=== PATIENT | female | born 1990 | race Two or more races ===

== ENCOUNTER 2024-12-16 18:19 | Emergency (ER) | payer MEDICAID, SELFPAY ==
[2024-12-16 18:19] VITALS: BMI 28.3
[2024-12-16 18:28] VITALS: BP 134/84; PULSE 74; RESP 18; TEMP 36.9; O2SAT 96
--- NOTE | 2024-12-16 18:36 | PD.EDDENTL ---
ED Dental RME/HPI General Chief complaint: Dental/Oral/Throat Stated complaint: LEFT SIDE DENTAL PAIN SINCE YEST Time Seen by Provider: 12/16/24 18:29 Arrival date/time: 12/16/24 18:19 34 year old female present to emergency room with c/o of left side pain for 1 day, history of dental issues in the past. pt report unable to make it into dentist. Take tylenol with minimal improvement LOCATION: dental SEVERITY: Symptoms are described as being severe with limitations on activities of daily living CONTEXT: The patient is unable to identify any inciting events. DURATION/TIMING: The symptoms started approximately one day ago and have been constant since and have been progressive getting worse. ASSOCIATED SYMPTOMS: The patient is unable to identify any other associated symptoms. MODIFYING FACTORS: The patient is unable to identify any alleviating or aggravating symptoms. PERTINENT ROS: no fevers, no cough, no pleuritic pain, no ripping or tearing sensations, denies any lower extremity edema and no unilateral swelling, no chest pain/shortness of breath no nausea,vomiting, diarrhea, no dizziness/headache no rash no loc/syncope episode no abd/back pain no dsyuria,urgency,frequency REVIEW OF SYSTEMS: See History of Present Illness - with the exception of those mentioned in the history of present illness, all other systems reviewed and reported as negative GENERAL: In general the patient is awake, interactive, in an emergency department gurney. HEAD/EYES/EARS/NOSE/THROAT: normo-cephalic, atraumatic, mucus membranes are moist, anicteric, palpebral conjunctiva is pink, trachea is midline. NEUROLOGICAL: cranio-facial features are symmetric, moves all four extremities equally without obvious limitations or weakness. EXTREMITY: no tenderness to palpation over the long bones or large joints of the bilateral upper and lower extremities, no joint swelling, no joint erythema, no signs of trauma, no unilateral leg swelling and no peripheral edema. SKIN: warm, dry, well-perfused, no jaundice, no rash, no telangiectasias or petechia. PSYCH: calm, cooperative, no evidence of psychosis or agitation Related Data Previous Rx's ?Medication ?Instructions ?Recorded naproxen 500 mg tablet (Naprosyn) 500 mg PO BID PRN pain #30 tabs 08/07/21 naproxen 500 mg tablet 500 mg PO BID #30 tabs 12/16/23 amoxicillin 875 mg-potassium 1 tab PO Q12H #14 tabs 12/16/24 clavulanate 125 mg tablet naproxen 500 mg tablet 500 mg PO BID PRN pain #30 tabs 12/16/24 Allergies Allergy/AdvReac Type Severity Reaction Status Date / Time CODIENE Allergy Severe Hives Uncoded 12/16/24 18:22 Course Course Course Narrative: Presentation consistent with dental pain of tooth left side lower? No evidence of Navneet's Angina, large abscess pocket, requirement for emergent extraction, or other complications. Provided prescription for augmentin/naproxen . Patient informed to follow up with local dentist. Return to ER if pain uncontrolled, abscess that drains purulent fluid, high fevers, trouble swallowing, or other concerns.? first dose of antibiotic and toradol 30mg IM given prior to discharge? Plan:? Discharge from ED? Rx: augmentin 875mg bid for 7 days, , Naproxen 500mg bid as need? F/U with local dentist Informed to return to ED if has new or worsening symptoms. Expressed understanding of and agreement with plan and all questions answered. Quality Measures none Orders Category Date Time Status Amoxicillin/Pot Clav 875 [Augmentin 875] Med 12/16/24 18:32 Discontinued 1 tab PO X1 ONE Ketorolac Inj [Toradol Inj] Med 12/16/24 18:32 Discontinued 30 mg IM X1 ONE Vital Signs Vital signs: Vital Signs Temperature 98.4 F 12/16/24 18:28 Pulse Rate 74 12/16/24 18:28 Respiratory Rate 18 12/16/24 18:28 Blood Pressure 134/84 H 12/16/24 18:28 Pulse Oximetry (%) 96 12/16/24 18:28 Oxygen Delivery Method Room Air 12/16/24 18:28 Dental / Oral Patient data External records reviewed:: [facility] previous records Clinical information provided by:: patient Social determinants that could affect healthcare access:: none Patient has the following chronic illnesses:: dental pain/infection How is presenting disease/condition affected by chronic disease/condition?: exacerbated by Evaluation data The following diagnostics were reviewed and interpreted by me:: other (specify) (n/a ) Lab and/or radiology exams considered but not ordered:: n/a Interpretation Summary: n/a Medications / Prescriptions Medications or Prescriptions considered but not ordered:: n/a Medication administrations:: Medication Administration History Discontinued Medications Amoxicillin/Clavulanate Potassium (Amoxicillin/Pot Clav 875 Tablet) 1 tab PO X1 ONE Stop: 12/16/24 18:33 Ketorolac Tromethamine (Ketorolac Inj 60 Mg/2 Ml Vial) 30 mg IM X1 ONE Stop: 12/16/24 18:33 as stated Consultations Consultation(s) initiated? (list below): No Diagnosis Most likely diagnosis given after review of the tests above:: dental pain Admission Indicated Admission indicated?: not indicated Admission Request Was there a request for admission?: No Disposition Plan Disposition Plan: Discharge Discharge Attestation Discharge Attestation: The patient and all family members were given an opportunity to ask questions and understood the discharge instructions. Discharge instructions specifically effects, indications for sooner follow up or return to the emergency department, and the expected course of current diagnosis. Patient condition: Stable Discharge Plan Plan Patient Disposition: HOME (Self Care) Health Concerns: Follow up with dentist as directed Return to ED if symptoms worsen Prescriptions/Referrals Prescriptions/Med Rec: New amoxicillin-pot clavulanate 875-125 mg tablet 1 tab PO Q12H Qty: 14 0RF naproxen 500 mg tablet 500 mg PO BID PRN (Reason: pain) Qty: 30 0RF No Action naproxen [Naprosyn] 500 mg tablet 500 mg PO BID PRN (Reason: pain) Qty: 30 0RF naproxen 500 mg tablet 500 mg PO BID Qty: 30 0RF Problem List Clinical Impression: Pain, dental Patient/Caregiver Discharge Instructions Education Materials: ED Dental Pain Print Language: [place] Leonean Stand Alone Forms: Luanne Award Info., Patient Portal Info Letter
[2024-12-16] MEDS: KETOROLAC INJ 60 MG/2 ML VIAL 30 MG IM (19:02)
[2024-12-16] MEDS: AMOXICILLIN/POT CLAV 875 TABLET 1 TAB PO (19:02)
== END 2024-12-16 19:12 | disposition home or self-care (01) ==
LOC: SERX 18:41
PROVIDERS: Emergency Provider Emergency Medicine
DX: K08.89 Other specified disorders of teeth and supporting structures (principal)
CPT/HCPCS: 96372; 99283; J1885; A9270

== ENCOUNTER 2025-01-29 19:29 | Emergency (ER) | payer MEDICAID, SELFPAY ==
[2025-01-29 19:31] VITALS: BMI 27.9
[2025-01-29 19:35] VITALS: BP 118/80; PULSE 73; RESP 18; TEMP 36.6; O2SAT 100
--- NOTE | 2025-01-29 19:47 | EDNOTE_ITS ---
ED Allergic Reaction RME/HPI General Chief complaint: Skin/Abscess/Foreign Body Stated complaint: RASH Time Seen by Provider: 01/29/25 19:43 Arrival date/time: 01/29/25 19:29 35F with history of anxiety/drug use presents to ED with 2 days of generalized itchy rash. Patient denies SOB, throat swelling, as well as new foods, meds, and hygiene products. Limitations: no limitations Related Data Previous Rx's ?Medication ?Instructions ?Recorded naproxen 500 mg tablet (Naprosyn) 500 mg PO BID PRN pa in #30 tabs 08/07/21 naproxen 500 mg tablet 500 mg PO BID #30 tabs 12/15 amoxicillin 875 mg-potassium 1 tab PO Q12H #14 tabs clavulanate 125 mg tablet naproxen 500 mg tablet 500 mg PO BID PRN pain #30 t abs 12/16/24 Allergies Allergy/AdvReac Type Severity Reaction Status Date / Time CODIENE Allergy Severe Hives Uncoded 01/29/25 19:30 Review of Systems Review of Systems Systems Reviewed: All systems reviewed, normal except as documented Constitutional Constitutional: Reports system reviewed and no additional complaints, except as documented, Denies fever(s) and Denies headache(s) ENT Ears, Nose, Mouth, and Throat: Denies disequilibrium and Denies headache(s) Cardiovascular Cardiovascular: Reports system reviewed and no additional complaints, except as documented, Denies chest pain and Denies dyspnea Respiratory Respiratory: Reports system reviewed and no additional complaints, except as documented, Denies cough and Denies dyspnea Gastrointestinal Gastrointestinal: Reports system reviewed and no additional complaints, except as documented, Denies abdominal pain, Denies nausea and Denies vomiting Integumentary/Breasts Skin/Breast: Reports as per HPI, Reports pruritus and Reports rash Neurologic Neurologic: Reports system reviewed and no additional complaints, except as documented, Denies confusion, Denies disequilibrium and Denies headache(s) Psychiatric Psychiatric: Denies confusion Past Medical History Past Medical History NEUROLOGIC: Negative Neurological Disorders CARDIAC: Negative Cardiac Disorders or Congestive Heart Failure RESPIRATORY: Negative Chronic Obstructive Pulmonary Disease (COPD) or Asthma GASTROINTESTINAL: Positive Gastrointestinal Disorders and Gall Bladder Disease GENITOURINARY: Negative Genitourinary Disorders or Renal Disease MUSCULOSKELETAL: Negative Musculoskeletal Disorders ENDOCRINE: Negative Endocrine Disorders, Diabetes Mellitus Type 1 or Diabetes Mellitus Type 2 HEMATOLOGIC: Negative Sickle Cell Disease Surgical History SURGICAL: Negative Section Social History SMOKING STATUS: Never smoker ED Exam General Limitations: Present no limitations General appearance: Present alert and in no apparent distress Head Head exam: Present atraumatic Eye Eye exam: Present normal appearance, PERRL and EOMI ENT ENT exam: Present normal exam, normal oropharynx and mucous membranes moist Neck Neck exam: Present normal inspection, full ROM and trachea midline Chest Chest inspection: Present normal inspection and symmetric chest wall rise Respiratory Respiratory exam: Present normal lung sounds bilaterally Cardiovascular Cardiovascular exam: Present regular rate, normal rhythm and normal heart sounds Abdominal Exam Abdominal exam: Present soft and normal bowel sounds Extremities Exam Extremities exam: Present normal inspection and full ROM Back Exam Back exam: Present normal inspection and full ROM Neurological Exam Neurological exam: Present alert, oriented X3 and CN II-XII intact Psychiatric Psychiatric exam: Present normal affect and normal mood Skin Skin exam: Present warm, dry, intact, normal color and rash Course Quality Measures none Orders Category Date Time Status DiphenhydrAMINE [Benadryl] Med 01/29/25 19:44 Discontinued 25 mg PO X1 ONE Famotidine [Pepcid] Med 01/29/25 19:44 Discontinued 20 mg PO X1 ONE dexAMETHasone TAB [Decadron Tab] Med 01/29/25 20:00 Discontinued 10 mg PO X1 ONE Vital Signs Vital signs: Vital Signs Temperature 97.9 F 01/29/25 19:35 Pulse Rate 73 01/29/25 19:35 Respiratory Rate 18 01/29/25 19:35 Blood Pressure 118/80 01/29/25 19:35 Pulse Oximetry (%) 100 01/29/25 19:35 Oxygen Delivery Method Room Air 01/29/25 19:35 O2 at 100% on RA and WNLs Allergic Reaction MDM Narrative MDM Narrative:: 35F with history of anxiety/drug use presents to ED with 2 days of generalized itchy rash. Patient denies SOB, throat swelling, as well as new foods, meds, and hygiene products. Physical exam reveals generalized urticarial rash. Normal WOB. Speech normal. Patient is afebrile, calm, and alert. Patient eloped prior to DC. Patient data External records reviewed:: [facility] previous records Clinical information provided by:: patient Social determinants that could affect healthcare access:: mental health Patient has the following chronic illnesses:: psych/anxiety How is presenting disease/condition affected by chronic disease/condition?: uneffected by Evaluation data The following diagnostics were reviewed and interpreted by me:: other (specify) (none) Lab and/or radiology exams considered but not ordered:: not ordered Interpretation Summary: n/a Medications / Prescriptions Medications or Prescriptions considered but not ordered:: ordered Medication administrations:: Medication Administration History Discontinued Medications Dexamethasone (Dexamethasone 4 Mg Tablet) 10 mg PO X1 ONE Stop: 01/29/25 20:01 Last Admin: 01/29/25 19:55 Dose: 10 mg Documented By: JOSIE Diphenhydramine HCl (Diphenhydramine 25 Mg Capsule) 25 mg PO X1 ONE Stop: 01/29/25 19:45 Last Admin: 01/29/25 19:55 Dose: 25 mg Documented By: AC Famotidine (Famotidine 20 Mg Tablet) 20 mg PO X1 ONE Stop: 01/29/25 19:45 Last Admin: 01/29/25 19:55 Dose: 20 mg Documented By: JOSIE above Consultations Consultation(s) initiated? (list below): No Diagnosis Differential Diagnosis allergic reaction: anaphylaxis, allergic reaction, angioedema, contact dermatitis, adverse reaction to drug, viral enanthem and urticaria Most likely diagnosis given after review of the tests above:: urticaria Admission Indicated Admission indicated?: not indicated Admission Request Was there a request for admission?: No Disposition Plan Disposition Plan: other (specify) (eloped) Discharge Plan Plan Patient Disposition: Elopement Prescriptions/Referrals Prescriptions/Med Rec: No Action naproxen [Naprosyn] 500 mg tablet 500 mg PO BID PRN (Reason: pain) Qty: 30 0RF naproxen 500 mg tablet 500 mg PO BID Qty: 30 0RF amoxicillin-pot clavulanate 875-125 mg tablet 1 tab PO Q12H Qty: 14 0RF naproxen 500 mg tablet 500 mg PO BID PRN (Reason: pain) Qty: 30 0RF Referrals: Nayan Bhagat MD [Primary Care Provider] - In 1 week Problem List Clinical Impression: Urticaria Patient/Caregiver Discharge Instructions Print Language: Yoruba PA/ELECTRIFICATION ADVISER Supervising Physician PA/ELECTRIFICATION ADVISER Supervising Physician: Dr. Del Castillo
[2025-01-29] MEDS: dexAMETHasone 4 MG TABLET 10 MG PO (19:55)
[2025-01-29] MEDS: FAMOTIDINE 20 MG TABLET PO (19:55)
[2025-01-29] MEDS: DiphenhydrAMINE 25 MG CAPSULE PO (19:55)
--- NOTE | 2025-01-29 21:40 | PC.NURSE ---
NO ANSWER FOR REVIEW
--- NOTE | 2025-01-29 21:45 | PC.NURSE ---
NO ANSWER FOR REVIEW
--- NOTE | 2025-01-29 22:00 | PC.NURSE ---
NO ANSWER FOR REVIEW
== END 2025-01-29 22:01 | disposition left against medical advice (07) ==
PROVIDERS: Emergency Provider Emergency Medicine; PCP Family Medicine
DX: L50.9 Urticaria, unspecified (principal)
CPT/HCPCS: 99281; J8540; A9270

== ENCOUNTER 2025-06-29 23:45 | Emergency (ER) | payer MEDICAID, SELFPAY ==
[2025-06-29 23:45] VITALS: BMI 23.3
[2025-06-29 23:59] VITALS: BP 122/82; PULSE 80; RESP 20; TEMP 36.7; O2SAT 96
--- NOTE | 2025-06-29 23:59 | XR_ITS ---
Examination: CT abdomen and pelvis without contrast. Coronal 3-D reconstructions. Sagittal 2-D reconstructions. Date and time of exam: June 30, 2025, 0152 hours INDICATIONS: Flank pain radiating to the abdomen beginning 6 hours ago CTDI: vol (mGy): 8.85 DLP: (mGycm): 450 Technique: Axial images of the abdomen have been obtained, 3 mm slice thickness Intravenous contrast material has not been administered. Low dose protocols were performed. One or more of the following dose reduction techniques were used; automated exposure control, adjustment of the mA and/or KV according to patient size, use of iterative reconstruction technique. Findings: No visualized liver or splenic lesion Absent gallbladder 2 mm right renal calculus Minimal left hydronephrosis secondary to 5 mm distal left ureteral vesicle junction calculus Normal appendix No bowel obstruction No bladder mass The osseous structures are intact IMPRESSION: Minimal left hydronephrosis secondary to 5 mm distal left ureterovesical junction calculus
[2025-06-30] MEDS: ONDANSETRON INJ 2 MG/ML INJ 2 ML 4 MG IM (00:22)
[2025-06-30] MEDS: KETOROLAC INJ 60 MG/2 ML VIAL 30 MG IM (00:22)
[2025-06-30 00:33] LABS: Basophils # (Auto) 0.0 Thou/mm3 (0.0-0.2); Basophils % (Auto) 1 % (0-2.5); Eosinophils # (Auto) 0.3 Thou/mm3 (0.0-0.5); Eosinophils % (Auto) 4 % (0-10); Hematocrit 39.3 % (36.0-46.0); Hemoglobin 13.7 g/dL (12.0-16.0); Immature Granulocytes Auto 0.01 Thou/mm3 (0.00-0.00); Lymphocytes # (Auto) 3.2 Thou/mm3 (1.0-4.8); Lymphocytes % (Auto) 49 % (10-50); Mean Corpuscular HGB Conc 34.9 g/dl (31.0-37.0); Mean Corpuscular Hemoglobin 32.2 pg (25.0-35.0); Mean Corpuscular Volume 93 fL (80-100); Monocytes # (Auto) 0.5 Thou/mm3 (0.0-0.8); Monocytes % (Auto) 7 % (0-12); Neutrophils # (Auto) 2.6 Thou/mm3 (1.8-7.7); Neutrophils % (Auto) 39 % (37-80); Nucleated Red Blood Cell # 0.00 Thou/mm3 (0.00-0.00); Nucleated Red Blood Cell % 0 /100 WBC (0); Platelet Count 277 Thou/mm3 (140-440); RDW Standard Deviation 42.5 fL (36.4-46.3); Red Blood Count 4.25 Miln/mm3 (4.00-5.20); White Blood Count 6.6 Thou/mm3 (3.6-11.0)
[2025-06-30 00:42] LABS: Collection Type, Urine Clean Catch
[2025-06-30 01:00] LABS: Bacteria,Urine 2+; Bilirubin,Urine Negative (Negative); Blood,Urine 2+ (Negative); Clarity,Urine Clear (Clear/Hazy); Color,Urine Lt-Yellow (Lt Yel-Yel); Glucose, Urine Negative (Negative); Ketones,Urine Negative (Negative); Leukocyte Esterase,Urine Positive (Negative); Nitrite,Urine Negative (Negative); PH,Urine 6.0 (5.0-7.0); Protein,Urine Negative (Neg - Trace); RBC,Urine 41 /hpf (0-3); Specific Gravity,Urine 1.020 (1.001-1.035); Squamous Epithelial Cell,Urine 9 /hpf (0-5); Urobilinogen,Urine Negative mg/dL (0.0-1.0); WBC,Urine 20 /hpf (0-5)
[2025-06-30 01:03] LABS: Alanine Aminotransferase 7 U/L (10-49); Albumin, Serum 4.0 gm/dL (3.5-5.0); Albumin/Globulin Ratio 1.7 (1.2-2.2); Alkaline Phosphatase 79 U/L (46-116); Anion Gap 8 (7-16); Aspartate Amino Transferase 12 U/L (0-34); BUN/Creatinine Ratio 14 Ratio (12-20); Bilirubin,Total 0.3 mg/dL (0.3-1.2); Blood Urea Nitrogen 11 mg/dL (9-23); Calcium 8.2 mg/dL (8.3-10.6); Calcium (Corrected) 8.2 mg/dL (8.5-10.1); Carbon Dioxide 25.5 mMol/L (20.0-31.0); Chloride 108 mMol/L (98-107); Creatinine (Component) 0.8 mg/dL (0.6-1.3); Estimated Creatinine Clearance 87.5 mL/min (>60); Globulin 2.4 gm/dL (2.3-3.5); Glucose 125 mg/dL (74-106); Lipase 27 U/L (12-53); Osmolality,Calculated 281 (275-295); Potassium 3.6 mMol/L (3.4-5.1); Sodium 141 mMol/L (136-145); Total Protein 6.4 gm/dL (5.7-8.2); eGFR > 60 See Note
[2025-06-30 01:09] LABS: HCG Qualitative,Urine Negative
--- NOTE | 2025-06-30 01:47 | PC.NURSE ---
PROVIDER CARMEN NOTIFIED THAT PATIENT IS HAVING PAIN 10/10 AFTER TORADOL MEDCIATION. PER CARMEN NO MEDICATION AT THIS TIME UNTIL CT SCAN IS BACK.
[2025-06-30] MEDS: MORPHINE SULF INJ 4 MG/ML VIAL IM (02:05)
--- NOTE | 2025-06-30 02:52 | PRELIM_ITS ---
CT scan of the abdomen and pelvis without intravenous contrast (axial sections with sagittal and coronal reformats) June 30, 2025 0152 hours Clinical History: Kidney stone Comparison: None available at the time of this report. Findings: The lung bases are clear. The pancreas, spleen, and adrenals are unremarkable on this noncontrast study. Left ureterovesical junction stone measuring 0.5 cm, the stone is not visible on the hot box checker image, mild left hydroureteronephrosis. Status post cholecystectomy. Hepatomegaly. No evidence of bowel obstruction. The appendix is within normal limits. There is no mesenteric or retroperitoneal adenopathy. Nonobstructing right kidney stone. The urinary bladder is unremarkable. There is no free fluid or free air. The osseous structures are unremarkable. The uterus and ovaries are within normal limits. Impression: 1. Left ureterovesical junction stone associated with hydroureteronephrosis. 2. Nonobstructing right nephrolithiasis. 3. Hepatomegaly. Report Electronically Signed By: Landon Alegre 06/30/2025 2:52:22 AM [EST]
--- NOTE | 2025-06-30 04:26 | EDNOTE_ITS ---
ED Abdominal Pain RME/HPI General Chief Complaint: Abdominal Pain Stated complaint: LEFT BACK PAIN RADIATES TO ABD Time seen by provider: 06/29/25 23:59 Arrival date/time: 06/29/25 23:45 This is a case of 35-year-old female who came into the emergency room due to left-sided abdominal pain for 2 days radiating to the left flank associated with nausea vomiting and burning in urination denies any blood in the urine denies any fever chills no other symptoms noted persistence of the symptoms this patient decided to start consult here in the emergency room Limitations: no limitations Related Data Previous Rx's ?Medication ?Instructions ?Recorded naproxen 500 mg tablet (Naprosyn) 500 mg PO BID PRN pa in #30 tabs 08/07/21 naproxen 500 mg tablet 500 mg PO BID #30 tabs 12/15 amoxicillin 875 mg-potassium 1 tab PO Q12H #14 tabs clavulanate 125 mg tablet naproxen 500 mg tablet 500 mg PO BID PRN pain #30 t abs 12/16/24 cephalexin 500 mg capsule 500 mg PO QID 10 days #40 ca ps 06/30/25 ketorolac 10 mg tablet 10 mg PO Q8H PRN pain #15 ta bs 06/30/25 ondansetron 4 mg disintegrating 4 mg PO Q8H PRN nausea and 06/30/25 tablet vomiting #10 tabs tamsulosin 0.4 mg capsule (Flomax) 0.4 mg PO QDAY #10 caps 06/30/25 Allergies Allergy/AdvReac Type Severity Reaction Status Date / Time CODIENE Allergy Severe Hives Uncoded 01/29/25 19:30 Review of Systems Review of Systems Systems Reviewed: All systems reviewed, normal except as documented Constitutional Constitutional: Reports system reviewed and no additional complaints, except as documented and Reports as per HPI Cardiovascular Cardiovascular: Reports system reviewed and no additional complaints, except as documented and Reports as per HPI Respiratory Respiratory: Reports system reviewed and no additional complaints, except as documented and Reports as per HPI Gastrointestinal Gastrointestinal: Reports system reviewed and no additional complaints, except as documented and Reports as per HPI Genitourinary Genitourinary: Reports system reviewed and no additional complaints, except as documented and Reports as per HPI Musculoskeletal Musculoskeletal: Reports system reviewed and no additional complaints, except as documented and Reports as per HPI Neurologic Neurologic: Reports system reviewed and no additional complaints, except as documented Past Medical History Past Medical History NEUROLOGIC: Negative Neurological Disorders CARDIAC: Negative Cardiac Disorders or Congestive Heart Failure RESPIRATORY: Negative Chronic Obstructive Pulmonary Disease (COPD) or Asthma GASTROINTESTINAL: Positive Gastrointestinal Disorders and Gall Bladder Disease GENITOURINARY: Negative Genitourinary Disorders or Renal Disease MUSCULOSKELETAL: Negative Musculoskeletal Disorders ENDOCRINE: Negative Endocrine Disorders, Diabetes Mellitus Type 1 or Diabetes Mellitus Type 2 HEMATOLOGIC: Negative Sickle Cell Disease Surgical History SURGICAL: Negative Section Social History SMOKING STATUS: Never smoker ED Exam General Limitations: Present no limitations General appearance: Present alert, in no apparent distress and other (Patient is awake alert oriented not in distress nontoxic looking well-hydrated well- nourished) Head Head exam: Present atraumatic, normocephalic and normal inspection Eye Eye exam: Present normal appearance, PERRL and EOMI ENT ENT exam: Present normal exam, normal oropharynx and mucous membranes moist Neck Neck exam: Present normal inspection, full ROM and trachea midline; Absent tenderness, meningismus, lymphadenopathy or thyromegaly Chest Chest inspection: Present normal inspection and symmetric chest wall rise; Absent tenderness Respiratory Respiratory exam: Present normal lung sounds bilaterally; Absent respiratory distress, wheezes, stridor, accessory muscle use or prolonged expiratory phase Cardiovascular Cardiovascular exam: Present regular rate, normal rhythm and normal heart sounds; Absent bradycardia, tachycardia, irregular rhythm, systolic murmur or diastolic murmur Abdominal Exam Abdominal exam: Present soft, tenderness (Mild tenderness left lower quadrant left flank no CVA tenderness no bladder tenderness no distention) and normal bowel sounds; Absent distention, guarding, rebound, rigidity, diminished bowel sounds, hyperactive bowel sounds, hypoactive bowel sounds, organomegaly, psoas sign, obturator sign, Pablo's sign, Rovsing's sign, tenderness at McBurney's Point, mass or hernia Extremities Exam Extremities exam: Present normal inspection and full ROM Back Exam Back exam: Present normal inspection and full ROM Neurological Exam Neurological exam: Present alert, oriented X3, CN II-XII intact, normal gait and reflexes normal; Absent motor sensory deficit Psychiatric Psychiatric exam: Present normal affect and normal mood Skin Skin exam: Present warm, dry, intact, normal color and other (Skin turgor) Course Quality Measures none Orders Category Date Time Status CT abdomen pelvis wo con Stat Exams 06/29/25 23:59 Taken CBC Stat Lab 06/29/25 00:09 Completed Comprehensive Metabolic Panel Stat Lab 06/29/25 00:09 Completed HCG Qualitative,Urine Stat Lab 06/30/25 00:37 Completed Lipase Stat Lab 06/29/25 00:09 Completed Urinalysis Stat Lab 06/30/25 00:37 Completed Ketorolac Inj [Toradol Inj] Med 06/30/25 00:00 Discontinued 30 mg IM X1 ONE Morphine* Inj Med 06/30/25 02:02 Discontinued 4 mg IM X1 ONE Ondansetron Inj [Zofran Inj] Med 06/30/25 00:00 Discontinued 4 mg IM X1 ONE Sodium Chloride 0.9% 1000 ml [Ns] 1,000 ml Med 06/30/25 04:18 Active IV 999 mls/hr Tamsulosin HCl [Flomax] Med 06/30/25 04:18 Discontinued 0.4 mg PO X1 ONE cefTRIAXone/D5w 1gm IV premix [Rocephin/D5w 1gm IV Med 06/30/25 04:19 Active premix] 1 gm in 50 ml IV X1 Vital Signs Vital signs: Vital Signs Temperature 98.1 F 06/29/25 23:59 Pulse Rate 80 06/29/25 23:59 Respiratory Rate 20 06/29/25 23:59 Blood Pressure 122/82 06/29/25 23:59 Pulse Oximetry (%) 96 06/29/25 23:59 Oxygen Delivery Method Room Air 06/29/25 23:59 Oxygen saturation is 96% on room air Abdominal Pain MDM MDM Narrative MDM Narrative:: This is a case of 35-year-old female who came into the emergency room due to left-sided abdominal pain for 2 days radiating to the left flank associated with nausea vomiting and burning in urination denies any blood in the urine denies any fever chills no other symptoms noted persistence of the symptoms this patient decided to start consult here in the emergency room physical examination patient is awake alert oriented not in distress nontoxic looking well-hydrated well-nourished excellent skin turgor abdominal exam is benign nonsurgical no guarding no rebound no rigidity mild tenderness on the left lower quadrant and left flank but no CVA tenderness bladder is not distended nor tender negative psoas negative straight or negative Rovsing's no McBurney sign Pablo sign negative CVA tenderness the rest of the plan the rest of the physical examination neurological exam is normal blood test showed no leukocytosis no anemia kidney and liver function is normal no electrolyte imbalance lipase is normal urinalysis showed WBC in range urine suggestive of urinary tract infection CT scan of the abdomen pelvis suggestive of ureteral stone nephrolithiasis on the right with hydroureteronephrosis no obstruction noted at this point patient was given a bolus of normal saline Zofran for nausea vomiting Flomax patient was also given Toradol and morphine which improved and resolved the pain patient was advised to see a urologist in 2 days for reevaluation of ureteral stone nephrolithiasis and hydroureteronephrosis patient was also given ceftriaxone IV for urinary tract infection and was discharged with cephalexin for 10 days patient advised for any worsening symptoms or any emergent concern return precaution in the emergency room is advised Patient was discharged with comfortable condition walking with stable gait. Patient verbalized no further complains explained diagnosis and answered patient question. Patient is comfortable with the proposed management plan including the need to follow up with his/her primary care physician and any specialist if applicable Discussed patient for any urgent condition or worsening sx, He/She needed to go to emergency room immediately or call 911. Patient acknowledge the responsibility to follow up as instructed and to monitor her/his symptoms. For any persistence of the symptoms for more than 3-5 days return precaution advised. Discussed the result of the test and was given printed discharge instruction Patient data External records reviewed:: [facility] previous records Clinical information provided by:: patient Social determinants that could affect healthcare access:: none Patient has the following chronic illnesses:: None How is presenting disease/condition affected by chronic disease/condition?: no chronic disease Evaluation data The following diagnostics were reviewed and interpreted by me:: lab results and radiology exam(s) Lab and/or radiology exams considered but not ordered:: Reviewed Interpretation Summary: Reviewed Medications / Prescriptions Medications or Prescriptions considered but not ordered:: Given Medication administrations:: Medication Administration History Sodium Chloride (Ns) 1,000 mls @ 999 mls/hr IV .Q1H1M ONE Stop: 06/30/25 05:18 Ceftriaxone Sodium/Dextrose (Rocephin/D5w 1gm Iv Premix) 1 gm in 50 mls @ 100 mls/hr IV X1 ONE Stop: 06/30/25 04:48 Discontinued Medications Ketorolac Tromethamine (Ketorolac Inj 60 Mg/2 Ml Vial) 30 mg IM X1 ONE Stop: 06/30/25 00:01 Last Admin: 06/30/25 00:22 Dose: 30 mg Documented By: FLIP Morphine Sulfate (Morphine Sulf Inj 4 Mg/Ml Vial) 4 mg IM X1 ONE Stop: 06/30/25 02:03 Last Admin: 06/30/25 02:05 Dose: 4 mg Documented By: DIOGO Ondansetron HCl (Ondansetron Inj 2 Mg/Ml Inj 2 Ml) 4 mg IM X1 ONE; Protocol Stop: 06/30/25 00:01 Last Admin: 06/30/25 00:22 Dose: 4 mg Documented By: FLIP Tamsulosin HCl (Tamsulosin Hcl 0.4 Mg Capsule) 0.4 mg PO X1 ONE Stop: 06/30/25 04:19 Given Consultations Consultation(s) initiated? (list below): No Diagnosis Differential diagnosis abdominal pain: abdominal pain, acute appendicitis, calculus of kidney, diverticulitis, gastroenteritis, pancreatitis and small bowel obstruction Most likely diagnosis given after review of the tests above:: Nephrolithiasis ureteral stone urinary tract infection Admission Indicated Admission indicated?: not indicated Explain why admission is indicated or not indicated:: Not indicated Admission Request Was there a request for admission?: No Admission Attestation Admission request attestation: Not indicated Disposition Plan Disposition Plan: Discharge Discharge Attestation Discharge Attestation: The patient and all family members were given an opportunity to ask questions and understood the discharge instructions. Discharge instructions specifically effects, indications for sooner follow up or return to the emergency department, and the expected course of current diagnosis. Patient condition: Stable Discharge Plan Plan Patient Disposition: HOME (Self Care) Patient condition on transfer: Stable Prescriptions/Referrals Prescriptions/Med Rec: New cephalexin 500 mg capsule 500 mg PO QID 10 Days Qty: 40 0RF ketorolac 10 mg tablet 10 mg PO Q8H PRN (Reason: pain) Qty: 15 0RF Rx Instructions: maximum total duration of 5 days from all oral, intranasal, or parenteral formulations tamsulosin [Flomax] 0.4 mg capsule 0.4 mg PO QDAY Qty: 10 0RF ondansetron 4 mg tablet,disintegrating 4 mg PO Q8H PRN (Reason: nausea and vomiting) Qty: 10 0RF No Action naproxen [Naprosyn] 500 mg tablet 500 mg PO BID PRN (Reason: pain) Qty: 30 0RF naproxen 500 mg tablet 500 mg PO BID Qty: 30 0RF amoxicillin-pot clavulanate 875-125 mg tablet 1 tab PO Q12H Qty: 14 0RF naproxen 500 mg tablet 500 mg PO BID PRN (Reason: pain) Qty: 30 0RF Referrals: [facility] [Outside] - 06/30/25 4:21 am Referral Note: For further evaluation and treatment of ureteral stone and kidney stone with hydro ureteral nephrosis Nayan Bhagat MD [Primary Care Provider, Family Practice] - In 1 week Problem List Clinical Impression: Abdominal pain, Ureteral stone, Nephrolithiasis, Hydroureteronephrosis, Urinary tract infection Patient/Caregiver Discharge Instructions Education Materials: Abdominal Pain, Urinary Tract Infections in Women, Kidney Stones Your Evaluation, Understanding Hydronephrosis Additional Instructions: Follow-up with your primary care physician in 2 days for reevaluation for any worsening symptoms or any emergent concerns such as blood in the urine unable to urinate abdominal pain fever chills nausea vomiting return to the emergency room immediately or call 911 it is very important to see a urologist in 2 days for reevaluation of ureteral stone kidney stone and hydroureteronephrosis take your medication as directed finish the course of antibiotic increase water intake keep hydrated take cranberry juice Pedialyte Gatorade for hydration is advised Print Language: Scottish Stand Alone Forms: Luanne Award Info., Patient Portal Info Letter PA/DOPE WEIGH OPERATOR Supervising Physician PA/DOPE WEIGH OPERATOR Supervising Physician: Dr. Moon Johnston
[2025-06-30] MEDS: SODIUM CHLORIDE 0.9% 1000 ML 1,000 ML 999 ML IV (05:14)
[2025-06-30] MEDS: MORPHINE SULF INJ 4 MG/ML VIAL IVP (05:14)
[2025-06-30] MEDS: cefTRIAXone/D5w 1gm IV premix 1 GM/50 ML BAG IV (05:16)
[2025-06-30] MEDS: TAMSULOSIN HCL 0.4 MG CAPSULE PO (05:16)
[2025-06-30] MEDS: ONDANSETRON INJ 2 MG/ML INJ 2 ML 4 MG IVP (05:34)
[2025-06-30] MEDS: HYDROmorphone INJ 2 MG/ML VIAL 1 MG IVP (05:34)
[2025-06-30 06:00] VITALS: BP 117/73; PULSE 60; RESP 16; TEMP 36.8; O2SAT 98
[2025-06-30 07:00] VITALS: BP 126/89; PULSE 82; RESP 17; TEMP 36.9; O2SAT 100
== END 2025-06-30 07:00 | disposition home or self-care (01) ==
PROVIDERS: Nurse Practitioner Family; Emergency Provider Emergency Medicine; PCP Family Medicine
DX: N13.6 Pyonephrosis (principal)
CPT/HCPCS: 36415; 74176; 80053; 81001; 81025; 83690; 85025; 96361; 96365; 96372; 96375; 96376; 99284; J0696; J1171; J1885; J2270; J2405; J7030; A9270